=== PATIENT | male | born 1940 | race Caucasian/White ===

== ENCOUNTER 2016-10-17 03:21 | Emergency (ER) | payer MEDICARE, OTHER ==
[~2016-10-17 03:21] MED LIST: ACET325T51 PO; ALBU8.5H2 INHALATION; CIPR-231 PO; DIPH25CA6 PO; DOCU240C41 PO; DXM4T PO; FUR20 PO; LORA0.5T PO; METO10TA3 PO; ONDA-54 PO; POLY17PO6 PO; PROC10TA PO; PROC25SU30 RC
[2016-10-17 03:25] VITALS: BP 145/66; PULSE 82; RESP 14; O2SAT 97
[2016-10-17] MEDS ORDERED: AMOX250C PO (03:30)
[2016-10-17] MEDS ORDERED: TRAM50TA2 PO (03:31)
--- NOTE | 2016-10-17 03:50 | ED.REPORT ---
HPI-Abd Pain M 40 and Over Date of Service October 17, 2016 ED Provider: Dr. Dempsey Pt is a 75 y/o male w/ a hx of recurrent UTIs, metastatic bladder cancer, presenting to the ED with family due to Dias catheter complications. The patient had the catheter placed because of recurrent UTIs and urinary retention. The catheter has been causing significant pain and is leaking. The family is looking to have it replaced today. Pt denies fever, chills, nausea, vomiting. Nursing Notes Stated Complaint: CATH ISSUES Chief Complaint: Male Abdominal Pain Nursing Notes Reviewed: Yes Allergies: Coded Allergies: levofloxacin (Verified Allergy, Unknown, 02/10/16) minocycline (Verified Allergy, Unknown, 02/10/16) Scheduled Acetaminophen (Acetaminophen) 325 Mg Tablet 650 MG PO BID Amoxicillin (Amoxicillin) 250 Mg Capsule 250 MG PO TID Ciprofloxacin (Cipro) 500 Mg Tablet 500 MG PO BID Dexamethasone (Dexamethasone) 4 Mg Tablet 4 MG PO DIRECTED take 2 times a day on days 2,3 and 4 of chemo at 8am and 2pm Docusate Calcium (Stool Softener) 240 Mg Capsule 2 CAPSULE PO BID Scheduled PRN Albuterol HFA (Proair HFA) 8.5 Gm Hfa.aer.ad 2 PUFFS INHALATION QID PRN PRN For Wheezing Ondansetron (Ondansetron) 8 Mg Tablet 8 MG PO TID PRN PRN For Nausea after day 4 of chemo cycle Phenazopyridine (Phenazopyridine) 200 Mg Tablet 200 MG PO TID PRN PRN dysuria Polyethylene Glycol 3350 (Miralax) 17 Gm Powd.pack 17 GM PO DAILY PRN PRN For Constipation Prochlorperazine Maleate (Prochlorperazine) 10 Mg Tablet 10 MG PO Q4H PRN PRN For Nausea/Vomiting Prochlorperazine Maleate (Compazine Suppository) 25 Mg Supp.rect 25 MG RC Q8 PRN PRN For Nausea/Vomiting Tramadol (Tramadol) 50 Mg Tablet 100 MG PO Q6H PRN PRN For Pain diphenhydrAMINE HCl (Benadryl) 25 Mg Capsule 25 MG PO DIRECTED PRN PRN For Nausea General Time Seen by MD: 03:49 Chief Complaint Other (catheter problems) Hx Obtained From: Patient Arrived By: Walk-in Sudden in Onset?: No Onset Occurred: Onset unknown Symptom Duration: Since onset Progression since Onset: Unchanged Location: : Diffuse Quality: Painful Severity: Current: Mild Severity: Maximum: Mild Recent Healthcare: Previous diagnosis Similar Sx Previous: Yes Past Medical History Past Medical History Notes: Urology Oncologist: Dr. Davin Urrutia Past Medical History 1. HX of UTIs 2. Distant diagnosis of bladder cancer treated locally. Recent recurrence with known bladder mass. Known metastasis to the right lower lung with a right lower lobectomy recently. This is detected by PET scan. Current plan is palliative with probable chemotherapy but no plans for bladder resection or a curative approach. 3. History of lung cancer with a right upper lobectomy. 4. dyspnea with exertion 5. diminished breathing due lung surgeries 6. chronic back issues 7. history of SIRS with metabolic encephalopathy 8. COPD Past Surgical History Right upper lobectomy for lung cancer 2007 Right lower lobectomy for resection of bladder cancer metastasis 07/2015 Local treatment of bladder cancer distantly. Nephrostomy Family History Noncontributory Smoking History Former Smoker Social History Alcohol Use: Denies alcohol use Drug Use: Denies drug use Other Social History: Good social support, Local resident Ambulatory Status Independent Review of Systems Review of Systems Note: + dias catheter complications Constitutional: Denies: Chills, Fever GI: Reports: Abdominal pain, Denies: Nausea, Vomiting Complete sys rev & neg: except as marked. Physical Exam Initial Vital Signs Vital Signs (First) Date Time Temp Pulse Resp B/P Pulse Ox O2 Delivery O2 Flow Rate FiO2 10/17/16 03:25 36.4 82 14 145/66 97 10/17/16 05:28 Room Air Initial VS: Reviewed, Vital signs normal Head / Eyes: Atraumatic, Normocephalic, PERRL ENT: Mucous membranes moist, Conjunctiva normal, No scleral icterus Neck: Supple, Full range of motion Skin: Warm, Dry, No cyanosis Neurologic: Alert, Oriented, Nonfocal Psychiatric: Mood/affect normal, Behavior normal, Normal thought content General/Constitutional: Awake, Alert, No acute distress, Well appearing, Cooperative, Not toxic appearing Respiratory / Chest: No respiratory distress, No retractions, No stridor Cardiovascular: Heart rate NL, Peripheral circulation NL Abdomen: Atraumatic, Soft, No guarding, No rebound Mild distention and tenderness about the suprapubic area Back: Full range of motion, Painless range of motion Male Genitourinary: Atraumatic Dias catheter leaking and obstructed Re-Eval/Medical Decision Med Decision/Clinical Course 75-year-old with bladder cancer presents with a sixteen silk on Dias recently placed, unfortunately being traction down into the prostate by the weight of his baggy and almost no support. This was replaced with an eighteen silicone Dias, and an adhesive device applied to his thigh, to prevent traction on the fully from the bag. He tolerated this well, and is discharged now in stable condition. Pyridium when necessary discomfort. Follow up with PCP. Time of Eval: 04:57 Re-Evaluation/Progress Note: Pt rechecked. Feels much better. Catheter replaced successfully. Informed pt of plan for treatment. Pt understands and agrees with plan for treatment. F/U instructions and RTER warnings given. All questions addressed. Counseled Regarding: Diagnosis, Need for follow-up, When/why to return to ED Discharge & Departure Primary Impression: Dias catheter problem Encounter type: initial encounter Qualified Code: T83.9XXA - Unspecified complication of genitourinary prosthetic device, implant and graft, initial encounter Disposition: Home Vital Signs - All Vital Signs Date Time Temp Pulse Resp B/P Pulse Ox O2 Delivery O2 Flow Rate FiO2 10/17/16 05:28 36.4 78 16 138/71 96 Room Air 10/17/16 03:25 36.4 82 14 145/66 97 )( All Prior VS Reviewed: Yes Condition: Stable Patient Instructions: Dias Catheter Placement and Care (ED) Referrals: Kavin Avila MD (PCP) Scribe Attestation Portions of this note were transcribed by Seth Steen. I, Dr. Dempsey personally performed the history, physical exam and medical decision-making; I reviewed and confirmed the accuracy of the information in the transcribed note. Signed by Alcides Bertrand, 10/17/16 - 1210 copies to: Kavin Avila MD, Christopher W MD October 17, 2016 03:50 SETH STEEN October 17, 2016 03:57
[2016-10-17] MEDS ORDERED: Lidocaine 2% 6mL Topical Jelly TOPICAL ONE (04:05)
[2016-10-17] MEDS ORDERED: PHEN-777 PO (04:53)
[2016-10-17 05:28] VITALS: BP 138/71; PULSE 78; RESP 16; O2SAT 96
== END 2016-10-17 05:29 | disposition home or self-care (01) ==
LOC: SED 03:21
DX: T83.84XA Pain due to genitourinary prosthetic devices, implants and grafts, initial encounter (principal); T83.031A Leakage of indwelling urethral catheter, initial encounter; Y84.6 Urinary catheterization as the cause of abnormal reaction of the patient, or of later complication, without mention of misadventure at the time of the procedure; Y93.89 Activity, other specified; Y92.89 Other specified places as the place of occurrence of the external cause; Y99.8 Other external cause status; J44.9 Chronic obstructive pulmonary disease, unspecified; Z87.440 Personal history of urinary (tract) infections; Z93.6 Other artificial openings of urinary tract status; Z87.891 Personal history of nicotine dependence; Z88.1 Allergy status to other antibiotic agents

== ENCOUNTER 2016-10-26 06:35 | Emergency (ER) | payer MEDICARE, OTHER ==
[~2016-10-26 06:35] MED LIST changes: +AMOX250C PO; -FUR20 PO; -LORA0.5T PO; -METO10TA3 PO; +PHEN-777 PO; +TRAM50TA2 PO
[2016-10-26 06:37] VITALS: BP 134/77; PULSE 106; RESP 18; O2SAT 94
--- NOTE | 2016-10-26 06:48 | ED.REPORT ---
HPI- Male Date of Service Oct 26, 2016 ED Provider: Mireya Del Rosario MD The patient is a 75 year old male with history of frequent UTIs, bladder cancer with known metastasis, lung cancer s/p lobectomy, chronic pain, and COPD, who presents to the emergency department complaining of a catheter problem. The patient woke up this morning and was "saturated" in urine. His urine seems to be draining into the bag now. This catheter has been in place for a few weeks. He denies fever, chills, nausea, vomiting, diarrhea, dysuria, hematuria, flank pain or back pain. His urologist is Dr. Castaneda at . Nursing Notes Stated Complaint: CATHETER ISSUES Chief Complaint: General Complaint Nursing Notes Reviewed: Yes Allergies: Coded Allergies: levofloxacin (Verified Allergy, Unknown, 02/10/16) minocycline (Verified Allergy, Unknown, 02/10/16) Scheduled Acetaminophen (Acetaminophen) 325 Mg Tablet 650 MG PO BID Amoxicillin (Amoxicillin) 250 Mg Capsule 250 MG PO TID Ciprofloxacin (Cipro) 500 Mg Tablet 500 MG PO BID Dexamethasone (Dexamethasone) 4 Mg Tablet 4 MG PO DIRECTED take 2 times a day on days 2,3 and 4 of chemo at 8am and 2pm Docusate Calcium (Stool Softener) 240 Mg Capsule 2 CAPSULE PO BID Scheduled PRN Albuterol HFA (Proair HFA) 8.5 Gm Hfa.aer.ad 2 PUFFS INHALATION QID PRN PRN For Wheezing Ondansetron (Ondansetron) 8 Mg Tablet 8 MG PO TID PRN PRN For Nausea after day 4 of chemo cycle Phenazopyridine (Phenazopyridine) 200 Mg Tablet 200 MG PO TID PRN PRN dysuria Polyethylene Glycol 3350 (Miralax) 17 Gm Powd.pack 17 GM PO DAILY PRN PRN For Constipation Prochlorperazine Maleate (Prochlorperazine) 10 Mg Tablet 10 MG PO Q4H PRN PRN For Nausea/Vomiting Prochlorperazine Maleate (Compazine Suppository) 25 Mg Supp.rect 25 MG RC Q8 PRN PRN For Nausea/Vomiting Tramadol (Tramadol) 50 Mg Tablet 100 MG PO Q6H PRN PRN For Pain diphenhydrAMINE HCl (Benadryl) 25 Mg Capsule 25 MG PO DIRECTED PRN PRN For Nausea General Time Seen by MD: 06:47 Chief Complaint Urinary catheter problem Hx Obtained From: Patient, Daughter Arrived By: Walk-in Onset Occurred: Onset unknown Symptom Duration: Duration unknown Severity: Current: No pain currently Severity: Maximum: No pain Recent Healthcare: No recent hospitalization, Recent doctor visit Similar Sx Previous: No Past Medical History Past Medical History Notes: Urology Oncologist: Dr. Davin Urrutia Urologist: Dr. Castaneda at Past Medical History 1. HX of UTIs 2. Distant diagnosis of bladder cancer treated locally. Recent recurrence with known bladder mass. Known metastasis to the right lower lung with a right lower lobectomy recently. This is detected by PET scan. Current plan is palliative with probable chemotherapy but no plans for bladder resection or a curative approach. 3. History of lung cancer with a right upper lobectomy. 4. dyspnea with exertion 5. diminished breathing due lung surgeries 6. chronic back issues 7. history of SIRS with metabolic encephalopathy 8. COPD Past Surgical History Right upper lobectomy for lung cancer 2007 Right lower lobectomy for resection of bladder cancer metastasis 07/2015 Local treatment of bladder cancer distantly. Nephrostomy Family History Noncontributory Smoking History Former Smoker Social History Alcohol Use: Denies alcohol use Drug Use: Denies drug use Other Social History: Good social support, Local resident Ambulatory Status Independent Review of Systems Review of Systems Note: +catheter problem Constitutional: Denies: Chills, Fever GI: Denies: Diarrhea, Nausea, Vomiting Male: Denies Dysuria, Denies Flank pain, Denies Hematuria Musculoskeletal: Denies: Back pain Complete sys rev & neg: except as marked. Physical Exam Initial Vital Signs Vital Signs (First) Date Time Temp Pulse Resp B/P Pulse Ox O2 Delivery O2 Flow Rate FiO2 10/26/16 06:37 35.9 106 18 134/77 94 Room Air Initial VS: Reviewed, Vital signs abnormal Head / Eyes: Atraumatic, Normocephalic, PERRL ENT: Mucous membranes moist, Conjunctiva normal, No scleral icterus Neck: Supple, Non-tender, Full range of motion Respiratory: Breath sounds normal, Clear to auscultation, No respiratory distress Cardiovascular: Regular rate & rhythm, Heart sounds normal, Intact distal pulses Lymphatic: No lymphadenopathy Extremities: Vascular intact, Neuro intact, No swelling, No tenderness Skin: Warm, Dry, No cyanosis Neurologic: Alert, Oriented, Nonfocal Psychiatric: Mood/affect normal, Behavior normal, Normal thought content Male Genitourinary: Atraumatic Gamino catheter in place. General/Constitutional: Awake, Alert, Cooperative Abdomen: Soft, No guarding, No rebound, BS normoactive, No distention, No hernia, No palpable mass, No pulsatile mass He has tenderness to his general lower abdomen. Re-Eval/Medical Decision Med Decision/Clinical Course The patient had leakage of urine around his catheter during the night, they are using a leg bag. Leg bag appears to kink quite easily which may be the reason for backup and leakage. It was emptied this morning and he has had urinary output from his catheter. The patient has a follow-up appointment tomorrow with his urologist. He is improved and has not had further leaking. Source of Hx: Old records Re-Evaluation/Progress #1: Time of Eval: 07:07 Re-Evaluation/Progress Note: Discussed plan to switch out the leg bag. Re-Evaluation/Progress #2: Time of Eval: 07:19 Re-Evaluation/Progress Note: Rechecked the patient. The catheter is draining clear urine. Discussed plan for discharge. All questions were addressed. Counseled Regarding: Diagnosis, Need for follow-up, When/why to return to ED Discharge & Departure Impression: Primary Impression: Gamino catheter problem Encounter type: initial encounter Qualified Code: T83.9XXA - Unspecified complication of genitourinary prosthetic device, implant and graft, initial encounter Disposition: Home Discharge Condition All VS Reviewed: Yes Condition: Stable Patient Instructions: Gamino Catheter Placement and Care (ED) Additional Instructions: Thank you for entrusting us with your care today. Use the rigid tubing at night. Switch over the leg bag during the day. Keep the followup appointment for tomorrow. Seek care for any signs of infection or any other new or concerning symptoms. Referrals: Kavin Avila MD (PCP) Alcides Attestation Portions of this note were transcribed by Joan Vargas. I, Dr. Del Rosario personally performed the history, physical exam and medical decision-making; I reviewed and confirmed the accuracy of the information in the transcribed note. Signed by: Alcides Richardson, 10/26/2016 at 0800. copies to: Kavin Avila MD, Jena M MD Oct 26, 2016 06:48 Sam,Joan Douglas Oct 26, 2016 06:52
== END 2016-10-26 07:47 | disposition home or self-care (01) ==
LOC: SED 06:35
DX: T83.031A Leakage of indwelling urethral catheter, initial encounter (principal); Y84.6 Urinary catheterization as the cause of abnormal reaction of the patient, or of later complication, without mention of misadventure at the time of the procedure; Y93.89 Activity, other specified; Y92.89 Other specified places as the place of occurrence of the external cause; Y99.8 Other external cause status; J44.9 Chronic obstructive pulmonary disease, unspecified; Z87.440 Personal history of urinary (tract) infections; Z93.6 Other artificial openings of urinary tract status; Z98.890 Other specified postprocedural states; Z87.891 Personal history of nicotine dependence; Z88.1 Allergy status to other antibiotic agents

== ENCOUNTER 2016-11-22 12:53 | Emergency (ER) | payer MEDICARE, OTHER ==
[~2016-11-22] VITALS: Ht 175.3 cm; Wt 79.1 kg
[2016-11-22 13:00] VITALS: BP 127/69; PULSE 80; RESP 18; O2SAT 96
--- NOTE | 2016-11-22 13:26 | ED.REPORT ---
HPI- Male Date of Service Nov 22, 2016 ED Provider: Jostin Victor PA-C Hosea is a 75-year-old male patient with chief complaint of discomfort at his Gamino catheter. Reports the catheter was placed approximately 3 weeks ago. He has had a sensation of pain and tugging. Reports that it has not been securely fastened to his leg. Denies fever, hematuria, Gamino obstruction, abdominal or back pain. Nursing Notes Stated Complaint: NEEDS NEW CATHETER PLACED Chief Complaint: General Complaint Nursing Notes Reviewed: Yes Allergies: Coded Allergies: levofloxacin (Verified Allergy, Unknown, 11/22/16) minocycline (Verified Allergy, Unknown, 11/22/16) Scheduled Acetaminophen (Acetaminophen) 325 Mg Tablet 650 MG PO BID Amoxicillin (Amoxicillin) 250 Mg Capsule 250 MG PO TID Ciprofloxacin (Cipro) 500 Mg Tablet 500 MG PO BID Dexamethasone (Dexamethasone) 4 Mg Tablet 4 MG PO DIRECTED take 2 times a day on days 2,3 and 4 of chemo at 8am and 2pm Docusate Calcium (Stool Softener) 240 Mg Capsule 2 CAPSULE PO BID Scheduled PRN Albuterol HFA (Proair HFA) 8.5 Gm Hfa.aer.ad 2 PUFFS INHALATION QID PRN PRN For Wheezing Ondansetron (Ondansetron) 8 Mg Tablet 8 MG PO TID PRN PRN For Nausea after day 4 of chemo cycle Phenazopyridine (Phenazopyridine) 200 Mg Tablet 200 MG PO TID PRN PRN dysuria Polyethylene Glycol 3350 (Miralax) 17 Gm Powd.pack 17 GM PO DAILY PRN PRN For Constipation Prochlorperazine Maleate (Prochlorperazine) 10 Mg Tablet 10 MG PO Q4H PRN PRN For Nausea/Vomiting Prochlorperazine Maleate (Compazine Suppository) 25 Mg Supp.rect 25 MG RC Q8 PRN PRN For Nausea/Vomiting Tramadol (Tramadol) 50 Mg Tablet 100 MG PO Q6H PRN PRN For Pain diphenhydrAMINE HCl (Benadryl) 25 Mg Capsule 25 MG PO DIRECTED PRN PRN For Nausea General Time Seen by MD: 13:05 Chief Complaint Other (Gamino discomfort) Past Medical History Past Medical History Notes: Urology Oncologist: Dr. Davin Urrutia Urologist: Dr. Castaneda at Past Medical History 1. HX of UTIs 2. Distant diagnosis of bladder cancer treated locally. Recent recurrence with known bladder mass. Known metastasis to the right lower lung with a right lower lobectomy recently. This is detected by PET scan. Current plan is palliative with probable chemotherapy but no plans for bladder resection or a curative approach. 3. History of lung cancer with a right upper lobectomy. 4. dyspnea with exertion 5. diminished breathing due lung surgeries 6. chronic back issues 7. history of SIRS with metabolic encephalopathy 8. COPD Past Surgical History Right upper lobectomy for lung cancer 2007 Right lower lobectomy for resection of bladder cancer metastasis 07/2015 Local treatment of bladder cancer distantly. Nephrostomy Family History Noncontributory Smoking History Former Smoker Social History Alcohol Use: Denies alcohol use Drug Use: Denies drug use Other Social History: Good social support, Local resident Ambulatory Status Independent Review of Systems Review of Systems Note: Negative unless stated otherwise in history of present illness Physical Exam General: Well appearing, well developed, well nourished, no acute distress. Head: Atraumatic, normocephalic. Eyes: No scleral icterus or injection. No discharge. Vision grossly intact. ENT: Voice clear, hearing grossly intact. Respiratory: Regular rate and rhythm. Breath sounds present, clear to auscultation and equal bilaterally. No respiratory distress. No increased work of breathing, speaks in complete sentences. Cardiovascular: Regular rate and rhythm, without murmur, gallop or rub. No pedal edema. Gastrointestinal: Abdomen flat and non-tender without guarding or rebound. Bowel sounds normoactive. Back: Negative CVA tenderness : Normal to inspection. Fully catheter in place and patent. Urine is straw- colored and clear. Skin: Warm and dry. Neurological: Grossly nonfocal. Psychological: Alert and oriented. Speech appropriate, linear and logical. Behavior appropriate. Initial Vital Signs Vital Signs (First) Date Time Temp Pulse Resp B/P Pulse Ox O2 Delivery O2 Flow Rate FiO2 11/22/16 13:00 36.7 80 18 127/69 96 Room Air Normal Re-Eval/Medical Decision Med Decision/Clinical Course 75 room up with the chief complaint of Gamino discomfort, denying other symptoms. Reports the Gamino placed approximately 3 weeks ago has been painful, with a sensation of pulling. It is not been firmly secured to his leg. Physical examination is benign. Gamino is secured to his upper leg by the nurse , patient reports this is completely relieved his symptoms and he feels prepared to be discharged. UA is deferred as the patient has a nontender abdomen, CVA, appears well with normal vital signs. I do not have a clinical suspicion for UTI, pyelonephritis. Advised regarding primary care follow-up, provided emergency return precautions. Patient verbalized understanding of, and consent to, the plan. Discharge & Departure Impression: Primary Impression: Gamino catheter problem Encounter type: initial encounter Qualified Code: T83.9XXA - Unspecified complication of genitourinary prosthetic device, implant and graft, initial encounter Disposition: Home Discharge Condition All VS Reviewed: Yes Condition: Stable Patient Instructions: Gamino Catheter Placement and Care (ED) Additional Instructions: Evaluation for a Gamino catheter problem in the emergency department that history and physical examination, both of which are reassuring that this is not caused by an immediately dangerous condition. This appears to been a simple adjustment performed by our nurse in securing the tube to your leg. You tell me that the problem appears to have resolved and you wish to be discharged. Follow-up with your primary care provider if you have any further concerns Return to emergency department for any new or worsening symptoms including increasing pain, fever, back pain. Referrals: Kavin Avila MD (PCP) EDSupervising Provider for APC: Giovani Rodriguez MD copies to: Kavin Avila MD, Seth PA-C Nov 22, 2016 13:26
== END 2016-11-22 13:45 | disposition home or self-care (01) ==
LOC: SED 12:53
DX: T83.9XXA Unspecified complication of genitourinary prosthetic device, implant and graft, initial encounter (principal); Y84.6 Urinary catheterization as the cause of abnormal reaction of the patient, or of later complication, without mention of misadventure at the time of the procedure; Y93.9 Activity, unspecified; Y92.9 Unspecified place or not applicable; Y99.9 Unspecified external cause status; C67.9 Malignant neoplasm of bladder, unspecified; C78.01 Secondary malignant neoplasm of right lung; Z87.891 Personal history of nicotine dependence; Z88.1 Allergy status to other antibiotic agents

== ENCOUNTER 2016-11-30 19:02 | Emergency (ER) | payer MEDICARE, OTHER ==
[~2016-11-30] VITALS: Ht 172.7 cm; Wt 68.2 kg
[2016-11-30 19:10] VITALS: BP 145/71; PULSE 83; RESP 19; O2SAT 96
--- NOTE | 2016-11-30 19:57 | ED.REPORT ---
HPI-General Illness Date of Service Nov 30, 2016 ED Provider: Jostin Victor PA-C Hosea is a 76-year-old male returning to the emergency department with chief complaint of catheter pain. Patient was seen in this department approximately one week ago for similar which improved after securing the catheter to his leg. Patient complains of continuing pain, stating that he feels the catheter is too short. He reports that the catheter is functional. The pain is aggravated by physical motion. The patient has dysuria, hematuria, penile discharge, abdominal pain, vomiting, fever, back pain. Nursing Notes Stated Complaint: NEED NEW CATHETER Chief Complaint: Male Abdominal Pain Nursing Notes Reviewed: Yes Allergies: Coded Allergies: levofloxacin (Verified Allergy, Unknown, 11/30/16) minocycline (Verified Allergy, Unknown, 11/30/16) Scheduled Acetaminophen (Acetaminophen) 325 Mg Tablet 650 MG PO BID Amoxicillin (Amoxicillin) 250 Mg Capsule 250 MG PO TID Ciprofloxacin (Cipro) 500 Mg Tablet 500 MG PO BID Dexamethasone (Dexamethasone) 4 Mg Tablet 4 MG PO DIRECTED take 2 times a day on days 2,3 and 4 of chemo at 8am and 2pm Docusate Calcium (Stool Softener) 240 Mg Capsule 2 CAPSULE PO BID Nystatin (Nystatin) 20 Applic/15 Gm Oint 30 APPLIC EXT QID Scheduled PRN Albuterol HFA (Proair HFA) 8.5 Gm Hfa.aer.ad 2 PUFFS INHALATION QID PRN PRN For Wheezing Ondansetron (Ondansetron) 8 Mg Tablet 8 MG PO TID PRN PRN For Nausea after day 4 of chemo cycle Phenazopyridine (Phenazopyridine) 200 Mg Tablet 200 MG PO TID PRN PRN dysuria Polyethylene Glycol 3350 (Miralax) 17 Gm Powd.pack 17 GM PO DAILY PRN PRN For Constipation Prochlorperazine Maleate (Prochlorperazine) 10 Mg Tablet 10 MG PO Q4H PRN PRN For Nausea/Vomiting Prochlorperazine Maleate (Compazine Suppository) 25 Mg Supp.rect 25 MG RC Q8 PRN PRN For Nausea/Vomiting Tramadol (Tramadol) 50 Mg Tablet 100 MG PO Q6H PRN PRN For Pain diphenhydrAMINE HCl (Benadryl) 25 Mg Capsule 25 MG PO DIRECTED PRN PRN For Nausea General Time Seen by MD: 19:41 Chief Complaint Other (catheter pain) Past Medical History Past Medical History Notes: Urology Oncologist: Dr. Davin Urrutia Urologist: Dr. Castaneda at Past Medical History 1. HX of UTIs 2. Distant diagnosis of bladder cancer treated locally. Recent recurrence with known bladder mass. Known metastasis to the right lower lung with a right lower lobectomy recently. This is detected by PET scan. Current plan is palliative with probable chemotherapy but no plans for bladder resection or a curative approach. 3. History of lung cancer with a right upper lobectomy. 4. dyspnea with exertion 5. diminished breathing due lung surgeries 6. chronic back issues 7. history of SIRS with metabolic encephalopathy 8. COPD Past Surgical History Right upper lobectomy for lung cancer 2007 Right lower lobectomy for resection of bladder cancer metastasis 07/2015 Local treatment of bladder cancer distantly. Nephrostomy Family History Noncontributory Smoking History Former Smoker Social History Alcohol Use: Denies alcohol use Drug Use: Denies drug use Other Social History: Good social support, Local resident Ambulatory Status Independent Review of Systems Negative unless stated otherwise in history of present illness Physical Exam General: Well appearing, well developed, well nourished, no acute distress. : Normal, circumcised penis with erythema and satellite lesions noted at the glans. Negative discharge. Testicles descended, nontender and without masses bilaterally. Head: Atraumatic, normocephalic. Eyes: No scleral icterus or injection. No discharge. Vision grossly intact. ENT: Voice clear, hearing impaired. Respiratory: Regular rate and rhythm. Breath sounds present, clear to auscultation and equal bilaterally. No respiratory distress. No increased work of breathing, speaks in complete sentences. Cardiovascular: Regular rate and rhythm, without murmur, gallop or rub. No pedal edema. Gastrointestinal: Abdomen flat and non-tender without guarding or rebound. Bowel sounds normoactive. Skin: Warm and dry. Neurological: Grossly nonfocal. Psychological: Alert and oriented. Speech appropriate, linear and logical. Behavior appropriate. Vital Signs Vital Signs Date Time Temp Pulse Resp B/P Pulse Ox O2 Delivery O2 Flow Rate FiO2 11/30/16 21:03 36.6 96 16 167/75 98 Room Air 11/30/16 19:10 36.8 83 19 145/71 96 Room Air Elevated blood pressure Re-Eval/Medical Decision Med Decision/Clinical Course 76-year-old male returning to the emergency department with continuing Gamino catheter pain. Seems department for similar complaints approximately one week ago. Complains of pain in his penis aggravated by walking, getting a car moving around. Denies dysuria, hematuria, no symptoms of UTI. Distal examination reveals some erythema at the glans of the penis with satellite lesions. Gamino catheter appears to be patent, negative hematuria. Abdomen is nontender, negative CVA tenderness. Vital signs are normal. I discussed case with Dr. Powers. Low clinical suspicion for urinary tract infection and feel that a urinalysis would most likely indicate bacteremia which I doubt would require treatment. I believe his rash is caused by candidiasis which may be aggravating his penile pain. Treated with nystatin ointment as well as catheter replacement with a smaller gauge Gamino catheter. I believe she is stable and safe to be discharged home. Advised regarding primary care follow-up, provided emergency return precautions. Patient verbalized understanding of, and consent to, the plan. Discharge & Departure Primary Impression: Candidiasis of penis Additional Impression: Gamino catheter problem Encounter type: subsequent encounter Qualified Code: T83.9XXD - Unspecified complication of genitourinary prosthetic device, implant and graft, subsequent encounter Disposition: Home Discharge Condition All VS Reviewed: Yes Condition: Stable Additional Instructions: Evaluation in the emergency department for catheter pain includes interview and physical examination which are reassuring this is unlikely to be caused by an immediately dangerous condition. I believe you are stable and safe to go home. It appears that you have a bit of a fungal infection at the tip of your penis, this may be contributing to her pain. I will write a prescription for nystatin ointment to be applied 4 times a day. Continue to apply this ointment until the symptoms have been resolved for one week to ensure eradication. We have replaced her Gamino catheter here in the emergency department. Hopefully this will be more comfortable for you. Please follow up with your primary care provider tomorrow. Return to emergency department for new or worsening symptoms including pain with urination, blood in your urine, discharge from the penis, pain in your back , fever or abdominal pain. Referrals: Kavin Avila MD (PCP) EDSupervising Provider for APC: Mauricio Powers MD copies to: Kavin Avila MD, Seth PA-C Nov 30, 2016 19:57
[2016-11-30] MEDS ORDERED: MYCO EXT (20:09)
[2016-11-30] MEDS ORDERED: Lidocaine 2% 6mL Topical Jelly ONE (20:17)
[2016-11-30 21:03] VITALS: BP 167/75; PULSE 96; RESP 16; O2SAT 98
== END 2016-11-30 21:04 | disposition home or self-care (01) ==
LOC: SED 19:02
DX: B37.49 Other urogenital candidiasis (principal); T83.84XD Pain due to genitourinary prosthetic devices, implants and grafts, subsequent encounter; Y84.6 Urinary catheterization as the cause of abnormal reaction of the patient, or of later complication, without mention of misadventure at the time of the procedure; Y93.89 Activity, other specified; Y99.8 Other external cause status; Y92.9 Unspecified place or not applicable; J44.9 Chronic obstructive pulmonary disease, unspecified; Z87.440 Personal history of urinary (tract) infections; Z85.51 Personal history of malignant neoplasm of bladder; Z85.118 Personal history of other malignant neoplasm of bronchus and lung; Z90.2 Acquired absence of lung [part of]; Z87.891 Personal history of nicotine dependence; Z79.51 Long term (current) use of inhaled steroids; Z88.1 Allergy status to other antibiotic agents